=== PATIENT | male | born 1935 | race African-American/Black ===

== ENCOUNTER 2020-05-04 12:15 | Inpatient (IN) | payer OTHER ==
[2020-05-04] MEDS ORDERED: LACTATED RINGERS SOLUTION 1000 ML INFUS.BAG IV ONE (12:49)
[2020-05-04] MEDS ORDERED: GLUCAGON 1 MG KIT ONE (12:56)
[2020-05-04] MEDS ORDERED: ATROPINE SULFATE 1 MG/10 ML DISP.SYRIN ONE (12:56)
[2020-05-04 13:20] VITALS: BMI 23.2
[2020-05-04] MEDS ORDERED: DEXTROSE 50%-WATER - 25 GM/50 ML VIAL IVPUSH ONE (13:22)
[2020-05-04] MEDS ORDERED: DEXTROSE 50%-WATER 25 GM/50 ML DISP.SYRIN ONE (13:25)
[2020-05-04 13:45] LABS: BASO % 0.5 % (0-2.0); EOS % 1.6 % (0-4.5); HEMATOCRIT 38.7 % (35.4-49); HEMOGLOBIN 13.1 GM/dL (11.7-16.9); MCH 33.7 pg (25.7-33.7); MCHC 33.8 g/dl (32.0-35.9); MEAN CELL VOLUME 99.8 fl (80-96); MEAN PLT VOLUME 8.9 fl (7.5-11.1); MONO % 6.4 % (3.8-10.2); NEUT % 78.5 % (42.8-82.8); PLATELET COUNT 311 K/MM3 (134-434); RBC 3.88 M/mm3 (4.00-5.60); RDW 13.6 % (11.9-15.9)
[2020-05-04 13:51] LABS: INR 1.11 (0.83-1.09); PROTHROMBIN TIME (PATIENT) 13.4 SEC (9.7-13.0)
[2020-05-04 13:53] LABS: ACTIVATED PTT 28.3 SECONDS (25.2-36.5)
[2020-05-04 14:18] LABS: POTASSIUM 3.7 mmol/L (3.5-5.1)
[2020-05-04 14:20] LABS: ALBUMIN 3.4 g/dl (3.4-5.0); CALCIUM 8.4 mg/dL (8.5-10.1); MAGNESIUM 2.6 mg/dL (1.8-2.4)
[2020-05-04 14:21] LABS: BLOOD UREA NITROGEN 27.2 mg/dL (7-18)
[2020-05-04 14:24] LABS: CREATININE 1.4 mg/dL (0.55-1.3)
[2020-05-04 14:25] LABS: BILIRUBIN,TOTAL 0.3 mg/dL (0.2-1); TOT PROT 6.8 g/dl (6.4-8.2)
[2020-05-04] MEDS ORDERED: SODIUM CHLORIDE 0.45% 1,000 ML IV SCH (15:00)
[2020-05-04] MEDS: INSULIN SLIDING SCALE (NOVOLOG) 1 VIAL SQ SCH ×2 (16:37→22:56)
[2020-05-04] MEDS ORDERED: amLODIPine BESYLATE 5 MG TABLET (FP) PO ONE (18:18)
[2020-05-04] MEDS ORDERED: amLODIPine BESYLATE 5 MG TABLET (FP) ONE (18:21)
[2020-05-04 18:53] LABS: PH,URINE 7.5 (5.0-8.0); URINE APPEARANCE CLEAR; URINE BILIRUBIN NEGATIVE (NEGATIVE); URINE COLOR YELLOW; URINE GLUCOSE (UA) NEGATIVE (NEGATIVE); URINE KETONE NEGATIVE (NEGATIVE); URINE LEUK ESTERASE NEGATIVE (NEGATIVE); URINE NITRITE NEGATIVE (NEGATIVE); URINE PROTEIN NEGATIVE (NEGATIVE); URINE UROBILINOGEN 0.2 mg/dL (0.2-1.0)
[2020-05-04] MEDS: PHENobarbital 30 MG TABLET PO SCH (22:56)
[2020-05-05] MEDS ORDERED: SODIUM CHLORIDE 0.45% 1,000 ML IV SCH (03:00)
[2020-05-05] MEDS: INSULIN SLIDING SCALE (NOVOLOG) 1 VIAL SQ SCH ×3 (06:45→16:56)
[2020-05-05] MEDS ORDERED: PT OWN MED DRAWER 7, Y5N ONE (06:47)
[2020-05-05] MEDS: levETIRAcetam 500 MG/5 ML ORAL SOLUTION (UNIT-DOSE CUPS) PO SCH ×2 (06:48→12:53)
[2020-05-05] MEDS: amLODIPine BESYLATE 5 MG TABLET (FP) PO SCH ×2 (07:39→11:27)
[2020-05-05 08:24] LABS: BASO % 0.6 % (0-2.0); EOS % 3.6 % (0-4.5); HEMATOCRIT 37.5 % (35.4-49); HEMOGLOBIN 12.6 GM/dL (11.7-16.9); MCH 33.3 pg (25.7-33.7); MCHC 33.5 g/dl (32.0-35.9); MEAN CELL VOLUME 99.3 fl (80-96); MEAN PLT VOLUME 9.1 fl (7.5-11.1); MONO % 6.4 % (3.8-10.2); NEUT % 61.4 % (42.8-82.8); PLATELET COUNT 272 K/MM3 (134-434); RBC 3.78 M/mm3 (4.00-5.60); RDW 13.3 % (11.9-15.9); WHITE BLOOD COUNT 6.6 K/mm3 (4.0-10.0)
[2020-05-05 08:53] LABS: POTASSIUM 3.5 mmol/L (3.5-5.1)
[2020-05-05 09:05] LABS: CALCIUM 8.5 mg/dL (8.5-10.1)
[2020-05-05 09:06] LABS: ALBUMIN 3.3 g/dl (3.4-5.0); BILIRUBIN,TOTAL 0.6 mg/dL (0.2-1); BLOOD UREA NITROGEN 22.2 mg/dL (7-18); MAGNESIUM 2.3 mg/dL (1.8-2.4); TOT PROT 6.5 g/dl (6.4-8.2)
[2020-05-05 09:08] LABS: CREATININE 1.1 mg/dL (0.55-1.3); PHOSPHOROUS 2.6 mg/dL (2.5-4.9)
[2020-05-05] MEDS: ENOXAPARIN NA (PORCINE) 40 MG/0.4 ML DISP.SYRIN SQ SCH (11:26)
[2020-05-05] MEDS: PHENobarbital 30 MG TABLET PO SCH ×2 (11:26→21:44)
[2020-05-05] MEDS: ISOSORBIDE DINITRATE 5 MG TABLET PO SCH ×2 (11:27→17:55)
[2020-05-05] MEDS: hydrALAZINE HCL 50 MG TABLET (FP) PO SCH ×3 (11:28→17:54)
[2020-05-05] MEDS: ALBUTEROL SO4 HFA INHALER IH SCH (21:44)
[2020-05-05] MEDS: POTASSIUM CHLORIDE TABS 20 MEQ TABLET.ER (FP) PO SCH (21:44)
[2020-05-05] MEDS: LATANOPROST 0.005% OPHTH SOLN 2.5ML BOTTLE OU SCH (21:45)
[2020-05-06] MEDS ORDERED: amLODIPine BESYLATE 5 MG TABLET (FP) PO ONE (02:02)
[2020-05-06] MEDS: ALBUTEROL SO4 HFA INHALER IH SCH ×3 (06:46→21:50)
[2020-05-06 08:09] LABS: HEMATOCRIT 37.6 % (35.4-49); HEMOGLOBIN 12.6 GM/dL (11.7-16.9); MCH 33.1 pg (25.7-33.7); MCHC 33.7 g/dl (32.0-35.9); MEAN CELL VOLUME 98.5 fl (80-96); MEAN PLT VOLUME 9.8 fl (7.5-11.1); PLATELET COUNT 268 K/MM3 (134-434); RBC 3.81 M/mm3 (4.00-5.60); RDW 13.4 % (11.9-15.9); WHITE BLOOD COUNT 6.1 K/mm3 (4.0-10.0)
[2020-05-06 08:14] LABS: POTASSIUM 3.6 mmol/L (3.5-5.1)
[2020-05-06 08:15] LABS: CALCIUM 8.4 mg/dL (8.5-10.1)
[2020-05-06 08:16] LABS: BLOOD UREA NITROGEN 20.2 mg/dL (7-18)
[2020-05-06] MEDS ORDERED: hydrALAZINE HCL 25 MG TABLET (FP) PO SCH (08:18)
[2020-05-06 08:19] LABS: CREATININE 1.1 mg/dL (0.55-1.3)
[2020-05-06] MEDS: CHOLECALCIFEROL (VIT D3) 1,000 UNIT (25 MCG) TABLET PO SCH (09:43)
[2020-05-06] MEDS: ENOXAPARIN NA (PORCINE) 40 MG/0.4 ML DISP.SYRIN SQ SCH (09:43)
[2020-05-06] MEDS: POTASSIUM CHLORIDE TABS 20 MEQ TABLET.ER (FP) PO SCH ×2 (09:44→21:43)
[2020-05-06] MEDS: CYANOCOBALAMIN 1,000 MCG TABLET (FP) PO SCH (09:45)
[2020-05-06] MEDS: ISOSORBIDE DINITRATE 5 MG TABLET PO SCH ×2 (09:45→18:14)
[2020-05-06] MEDS: NIFEdipine E.R. 90 MG TABLET PO SCH (09:46)
[2020-05-06] MEDS: TAMSULOSIN HCL 0.4 MG CAP PO SCH (09:46)
[2020-05-06] MEDS: PHENobarbital 30 MG TABLET PO SCH ×2 (09:46→21:49)
[2020-05-06] MEDS: levETIRAcetam 500 MG/5 ML ORAL SOLUTION (UNIT-DOSE CUPS) PO SCH (09:47)
[2020-05-06] MEDS ORDERED: NIFEdipine E.R. 90 MG TABLET PO SCH (10:00)
[2020-05-06] MEDS: LOSARTAN POTASSIUM 25 MG TABLET PO SCH ×2 (13:19→21:44)
[2020-05-06] MEDS: hydrALAZINE HCL 50 MG TABLET (FP) PO SCH ×2 (18:14→22:16)
[2020-05-06] MEDS ORDERED: hydrALAZINE HCL 50 MG TABLET (FP) PO SCH (19:00)
[2020-05-06] MEDS: LATANOPROST 0.005% OPHTH SOLN 2.5ML BOTTLE OU SCH (21:43)
[2020-05-06] MEDS: ATORVASTATIN CA 10 MG TABLET (FP) PO SCH (21:49)
[2020-05-07] MEDS: NIFEdipine E.R. 90 MG TABLET PO SCH ×2 (06:03→09:55)
[2020-05-07] MEDS: ALBUTEROL SO4 HFA INHALER IH SCH ×3 (06:03→21:37)
[2020-05-07 07:31] LABS: BASO % 0.6 % (0-2.0); EOS % 2.8 % (0-4.5); HEMATOCRIT 36.8 % (35.4-49); HEMOGLOBIN 12.5 GM/dL (11.7-16.9); LYMPH % 29.9 % (8-40); MCH 33.5 pg (25.7-33.7); MCHC 34.1 g/dl (32.0-35.9); MEAN CELL VOLUME 98.4 fl (80-96); MEAN PLT VOLUME 9.1 fl (7.5-11.1); MONO % 8.7 % (3.8-10.2); PLATELET COUNT 278 K/MM3 (134-434); RBC 3.74 M/mm3 (4.00-5.60); RDW 13.4 % (11.9-15.9); WHITE BLOOD COUNT 6.1 K/mm3 (4.0-10.0)
[2020-05-07 07:45] LABS: POTASSIUM 3.5 mmol/L (3.5-5.1)
[2020-05-07 07:47] LABS: CALCIUM 8.8 mg/dL (8.5-10.1)
[2020-05-07 07:48] LABS: ALBUMIN 3.2 g/dl (3.4-5.0); BLOOD UREA NITROGEN 18.5 mg/dL (7-18)
[2020-05-07 07:51] LABS: CREATININE 1.1 mg/dL (0.55-1.3)
[2020-05-07 07:52] LABS: BILIRUBIN,TOTAL 0.7 mg/dL (0.2-1); TOT PROT 6.5 g/dl (6.4-8.2)
[2020-05-07] MEDS ORDERED: CHLORTHALIDONE 25 MG TABLET PO SCH ×3 (09:18→10:00)
[2020-05-07] MEDS: ENOXAPARIN NA (PORCINE) 40 MG/0.4 ML DISP.SYRIN SQ SCH (09:53)
[2020-05-07] MEDS: CHOLECALCIFEROL (VIT D3) 1,000 UNIT (25 MCG) TABLET PO SCH (09:53)
[2020-05-07] MEDS: TAMSULOSIN HCL 0.4 MG CAP PO SCH (09:54)
[2020-05-07] MEDS: ISOSORBIDE DINITRATE 5 MG TABLET PO SCH ×2 (09:54→18:15)
[2020-05-07] MEDS: FUROSEMIDE 20 MG TABLET (FP) PO SCH ×2 (09:54→21:35)
[2020-05-07] MEDS: POTASSIUM CHLORIDE TABS 20 MEQ TABLET.ER (FP) PO SCH (09:54)
[2020-05-07] MEDS: CYANOCOBALAMIN 1,000 MCG TABLET (FP) PO SCH (09:54)
[2020-05-07] MEDS: PHENobarbital 30 MG TABLET PO SCH ×2 (09:55→21:36)
[2020-05-07] MEDS: LOSARTAN POTASSIUM 25 MG TABLET PO SCH ×2 (09:55→21:36)
[2020-05-07] MEDS ORDERED: METOPROLOL TARTRATE 50 MG TABLET (FP) PO SCH (10:00)
[2020-05-07] MEDS ORDERED: levETIRAcetam 500 MG TABLET (FP) PO SCH (10:00)
[2020-05-07] MEDS: levETIRAcetam 500 MG/5 ML ORAL SOLUTION (UNIT-DOSE CUPS) PO SCH (10:28)
[2020-05-07] MEDS: hydrALAZINE HCL 25 MG TABLET (FP) PO SCH ×4 (12:07→21:35)
[2020-05-07] MEDS ORDERED: NIFEdipine E.R. 90 MG TABLET PO SCH (16:41)
[2020-05-07] MEDS ORDERED: NIFEdipine E.R. 30 MG TABLET PO ONE (16:41)
[2020-05-07] MEDS: SPIRONOLACTONE 25 MG TABLET PO SCH (16:58)
[2020-05-07] MEDS: ATORVASTATIN CA 10 MG TABLET (FP) PO SCH (21:36)
[2020-05-07] MEDS: LATANOPROST 0.005% OPHTH SOLN 2.5ML BOTTLE OU SCH (21:37)
[2020-05-08] MEDS ORDERED: LABETALOL HCL 5 MG/1 ML (100MG/20 ML VIAL) IVPUSH ONE ×2 (01:43→01:59)
[2020-05-08] MEDS: ALBUTEROL SO4 HFA INHALER IH SCH ×3 (06:26→22:03)
[2020-05-08 07:58] LABS: BASO % 0.5 % (0-2.0); EOS % 2.4 % (0-4.5); HEMATOCRIT 38.6 % (35.4-49); LYMPH % 29.8 % (8-40); MCH 33.3 pg (25.7-33.7); MCHC 33.8 g/dl (32.0-35.9); MEAN CELL VOLUME 98.5 fl (80-96); MEAN PLT VOLUME 9.1 fl (7.5-11.1); MONO % 9.4 % (3.8-10.2); NEUT % 57.9 % (42.8-82.8); PLATELET COUNT 280 K/MM3 (134-434); RBC 3.92 M/mm3 (4.00-5.60); RDW 13.5 % (11.9-15.9); WHITE BLOOD COUNT 5.5 K/mm3 (4.0-10.0)
[2020-05-08] MEDS ORDERED: PT OWN MED DRAWER 7, Y5N ONE (08:04)
[2020-05-08] MEDS: TAMSULOSIN HCL 0.4 MG CAP PO SCH (08:24)
[2020-05-08] MEDS: INSULIN (LEVEMIR) 100 UNITS/ML UNITS SQ SCH (09:52)
[2020-05-08] MEDS: NIFEdipine E.R 60 MG TABLET PO SCH (09:52)
[2020-05-08] MEDS: ENOXAPARIN NA (PORCINE) 40 MG/0.4 ML DISP.SYRIN SQ SCH (09:52)
[2020-05-08] MEDS: PHENobarbital 30 MG TABLET PO SCH ×2 (09:53→22:02)
[2020-05-08] MEDS: FUROSEMIDE 20 MG TABLET (FP) PO SCH ×2 (09:53→22:02)
[2020-05-08] MEDS: ISOSORBIDE DINITRATE 5 MG TABLET PO SCH ×2 (09:53→17:30)
[2020-05-08] MEDS: POTASSIUM CHLORIDE TABS 10 MEQ TABLET.ER (FP) PO SCH (09:53)
[2020-05-08] MEDS: CYANOCOBALAMIN 1,000 MCG TABLET (FP) PO SCH (09:53)
[2020-05-08] MEDS: SPIRONOLACTONE 25 MG TABLET PO SCH (09:53)
[2020-05-08] MEDS: hydrALAZINE HCL 25 MG TABLET (FP) PO SCH ×3 (09:53→22:01)
[2020-05-08] MEDS: LOSARTAN POTASSIUM 25 MG TABLET PO SCH ×2 (09:53→22:01)
[2020-05-08] MEDS: CHOLECALCIFEROL (VIT D3) 1,000 UNIT (25 MCG) TABLET PO SCH (09:54)
[2020-05-08] MEDS: levETIRAcetam 500 MG TABLET (FP) PO SCH (09:54)
[2020-05-08] MEDS ORDERED: POTASSIUM CHLORIDE TABS 20 MEQ TABLET.ER (FP) PO SCH (10:00)
[2020-05-08] MEDS ORDERED: BUDESONIDE/FORMETEROL FUMARATE 80/4.5 mcg INHALER IH SCH (10:30)
[2020-05-08 19:48] LABS: PH,URINE 6.5 (5.0-8.0); URINE APPEARANCE CLEAR; URINE BILIRUBIN NEGATIVE (NEGATIVE); URINE COLOR YELLOW; URINE GLUCOSE (UA) NEGATIVE (NEGATIVE); URINE KETONE NEGATIVE (NEGATIVE); URINE LEUK ESTERASE NEGATIVE (NEGATIVE); URINE NITRITE NEGATIVE (NEGATIVE); URINE PROTEIN NEGATIVE (NEGATIVE); URINE UROBILINOGEN 0.2 mg/dL (0.2-1.0)
[2020-05-08] MEDS: ATORVASTATIN CA 10 MG TABLET (FP) PO SCH (22:02)
[2020-05-08] MEDS: LATANOPROST 0.005% OPHTH SOLN 2.5ML BOTTLE OU SCH (22:03)
[2020-05-09] MEDS: ALBUTEROL SO4 HFA INHALER IH SCH ×2 (06:33→13:52)
[2020-05-09] MEDS: INSULIN (LEVEMIR) 100 UNITS/ML UNITS SQ SCH (06:34)
[2020-05-09 08:11] LABS: BASO % 3.1 % (0-2.0); EOS % 2.7 % (0-4.5); HEMATOCRIT 42.8 % (35.4-49); HEMOGLOBIN 14.4 GM/dL (11.7-16.9); LYMPH % 31.4 % (8-40); MCH 33.8 pg (25.7-33.7); MCHC 33.6 g/dl (32.0-35.9); MEAN CELL VOLUME 100.5 fl (80-96); MEAN PLT VOLUME 9.7 fl (7.5-11.1); MONO % 8.5 % (3.8-10.2); NEUT % 54.3 % (42.8-82.8); PLATELET COUNT 225 K/MM3 (134-434); RBC 4.26 M/mm3 (4.00-5.60); RDW 13.5 % (11.9-15.9); WHITE BLOOD COUNT 6.3 K/mm3 (4.0-10.0)
[2020-05-09 08:14] LABS: POTASSIUM 3.5 mmol/L (3.5-5.1)
[2020-05-09 08:17] LABS: CALCIUM 9.2 mg/dL (8.5-10.1)
[2020-05-09 08:22] LABS: CREATININE 1.2 mg/dL (0.55-1.3)
[2020-05-09] MEDS: TAMSULOSIN HCL 0.4 MG CAP PO SCH (08:55)
[2020-05-09] MEDS: ENOXAPARIN NA (PORCINE) 40 MG/0.4 ML DISP.SYRIN SQ SCH (09:49)
[2020-05-09] MEDS: ISOSORBIDE DINITRATE 5 MG TABLET PO SCH (09:49)
[2020-05-09] MEDS: levETIRAcetam 500 MG TABLET (FP) PO SCH (09:49)
[2020-05-09] MEDS: POTASSIUM CHLORIDE TABS 10 MEQ TABLET.ER (FP) PO SCH (09:49)
[2020-05-09] MEDS: CYANOCOBALAMIN 1,000 MCG TABLET (FP) PO SCH (09:49)
[2020-05-09] MEDS: SPIRONOLACTONE 25 MG TABLET PO SCH (09:49)
[2020-05-09] MEDS: FUROSEMIDE 20 MG TABLET (FP) PO SCH (09:50)
[2020-05-09] MEDS: CHOLECALCIFEROL (VIT D3) 1,000 UNIT (25 MCG) TABLET PO SCH (09:50)
[2020-05-09] MEDS: hydrALAZINE HCL 25 MG TABLET (FP) PO SCH (09:51)
[2020-05-09] MEDS: PHENobarbital 30 MG TABLET PO SCH (09:52)
[2020-05-09] MEDS: LOSARTAN POTASSIUM 25 MG TABLET PO SCH (09:52)
[2020-05-09] MEDS: NIFEdipine E.R 60 MG TABLET PO SCH (09:52)
[2020-05-09 10:34] VITALS: BP 157/80; PULSE 69; TEMP 98.5
[2020-05-09] MEDS ORDERED: hydrALAZINE HCL 25 MG TABLET (FP) PO SCH (14:00)
== END 2020-05-09 14:03 | DRG 78 ==
LOC: JER 12:15 → JERBED 14:52 → J4W 20:31
PROVIDERS: ADMIT Internal Medicine; ATTEND Internal Medicine
DX: I67.4 Hypertensive encephalopathy (principal); I16.1 Hypertensive emergency; I69.354 Hemiplegia and hemiparesis following cerebral infarction affecting left non-dominant side; N17.9 Acute kidney failure, unspecified; E87.0 Hyperosmolality and hypernatremia; R41.82 Altered mental status, unspecified; I12.9 Hypertensive chronic kidney disease with stage 1 through stage 4 chronic kidney disease, or unspecified chronic kidney disease; G40.909 Epilepsy, unspecified, not intractable, without status epilepticus; N18.9 Chronic kidney disease, unspecified; J44.9 Chronic obstructive pulmonary disease, unspecified; N40.0 Benign prostatic hyperplasia without lower urinary tract symptoms; R55 Syncope and collapse; E87.6 Hypokalemia; H40.9 Unspecified glaucoma; R00.1 Bradycardia, unspecified; E11.9 Type 2 diabetes mellitus without complications
CPT/HCPCS: 36415; 70450-TC; 71045-TC-FY; 80048; 80053; 80061; 80177; 80184; 81003; 82550; 82553; 82962; 83036; 83721; 83735; 84100; 84443; 84484; 85025; 85027; 85379; 85610; 85730; 93005; 93010; 93306-TC; 93880-TC; 97116-GP; 97161-GP; 99285-25; C9803; U0003

== ENCOUNTER 2021-03-11 13:42 | Inpatient (IN) | payer OTHER ==
[2021-03-11 14:41] VITALS: BMI 22.8
[2021-03-11 16:24] LABS: BASO % 0.5 % (0-2.0); EOS % 2.6 % (0-4.5); HEMATOCRIT 40.4 % (35.4-49); HEMOGLOBIN 13.7 GM/dL (11.7-16.9); LYMPH % 15.8 % (8-40); MCH 32.8 pg (25.7-33.7); MCHC 33.8 g/dl (32.0-35.9); MEAN CELL VOLUME 96.9 fl (80-96); MEAN PLT VOLUME 8.4 fl (7.5-11.1); MONO % 7.7 % (3.8-10.2); NEUT % 73.4 % (42.8-82.8); PLATELET COUNT 333 10^3/uL (134-434); RBC 4.17 M/mm3 (4.00-5.60); RDW 13.3 % (11.9-15.9); WHITE BLOOD COUNT 6.5 K/mm3 (4.0-10.0)
[2021-03-11 16:35] LABS: VENOUS O2 SATURATION 49.5 % (70-80); VENOUS PCO2 67.1 mmHg (38-52); VENOUS PH 7.317 (7.310-7.410)
[2021-03-11 16:40] LABS: INR 1.19 (0.83-1.09); PROTHROMBIN TIME (PATIENT) 13.7 SEC (9.7-13.0)
[2021-03-11 16:46] LABS: MAGNESIUM 2.4 mg/dL (1.8-2.4)
[2021-03-11 17:38] LABS: CALCIUM 9.6 mg/dL (8.5-10.1)
[2021-03-11 17:39] LABS: ALBUMIN 4.1 g/dl (3.4-5.0); BLOOD UREA NITROGEN 29.7 mg/dL (7-18)
[2021-03-11 17:42] LABS: CREATININE 1.6 mg/dL (0.55-1.3)
[2021-03-11 17:45] LABS: BILIRUBIN,TOTAL 0.5 mg/dL (0.2-1); TOT PROT 7.8 g/dl (6.4-8.2)
[2021-03-11] MEDS ORDERED: SODIUM CHLORIDE 0.9% 500 ML INFUS.BAG IV ONE (18:11)
[2021-03-11] MEDS ORDERED: POTASSIUM CHLORIDE TABS 20 MEQ TABLET.ER (FP) PO ONE (18:11)
[2021-03-11] MEDS ORDERED: LOSARTAN POTASSIUM 50 MG TABLET PO SCH (22:00)
[2021-03-11] MEDS ORDERED: FUROSEMIDE 40 MG TABLET (FP) PO SCH (22:00)
[2021-03-11] MEDS ORDERED: LOSARTAN POTASSIUM 50 MG TABLET ONE (22:11)
[2021-03-11] MEDS ORDERED: hydrALAZINE HCL 25 MG TABLET (FP) ONE (22:11)
[2021-03-11] MEDS: hydrALAZINE HCL 25 MG TABLET (FP) PO SCH (22:17)
[2021-03-11 22:53] LABS: URINE APPEARANCE CLEAR; URINE BILIRUBIN NEGATIVE (NEGATIVE); URINE COLOR YELLOW; URINE GLUCOSE (UA) NEGATIVE (NEGATIVE); URINE KETONE NEGATIVE (NEGATIVE); URINE LEUK ESTERASE NEGATIVE (NEGATIVE); URINE NITRITE NEGATIVE (NEGATIVE); URINE PROTEIN TRACE (NEGATIVE); URINE UROBILINOGEN 0.2 mg/dL (0.2-1.0)
[2021-03-11] MEDS: HEPARIN NA (PORCINE) 5,000 UNITS/ML 1ML VIAL SQ SCH (23:36)
[2021-03-11] MEDS ORDERED: HEPARIN NA (PORCINE) 5,000 UNITS/ML 1ML VIAL ONE (23:39)
[2021-03-12] MEDS ORDERED: FUROSEMIDE 40 MG TABLET (FP) ONE ×2 (06:08→16:37)
[2021-03-12] MEDS ORDERED: HEPARIN NA (PORCINE) 5,000 UNITS/ML 1ML VIAL ONE ×3 (06:08→22:08)
[2021-03-12] MEDS ORDERED: hydrALAZINE HCL 25 MG TABLET (FP) ONE ×3 (06:08→22:08)
[2021-03-12] MEDS: hydrALAZINE HCL 25 MG TABLET (FP) PO SCH ×3 (06:30→22:15)
[2021-03-12] MEDS: HEPARIN NA (PORCINE) 5,000 UNITS/ML 1ML VIAL SQ SCH ×3 (06:30→22:15)
[2021-03-12] MEDS: FUROSEMIDE 40 MG, FUROSEMIDE 20 MG PO SCH ×2 (06:30→17:21)
[2021-03-12 08:39] LABS: BASO % 0.7 % (0-2.0); EOS % 2.4 % (0-4.5); HEMATOCRIT 40.3 % (35.4-49); HEMOGLOBIN 13.5 GM/dL (11.7-16.9); MCH 32.3 pg (25.7-33.7); MCHC 33.4 g/dl (32.0-35.9); MEAN CELL VOLUME 96.7 fl (80-96); MEAN PLT VOLUME 8.6 fl (7.5-11.1); MONO % 7.8 % (3.8-10.2); NEUT % 62.1 % (42.8-82.8); PLATELET COUNT 360 10^3/uL (134-434); RBC 4.17 M/mm3 (4.00-5.60); RDW 13.3 % (11.9-15.9); WHITE BLOOD COUNT 6.2 K/mm3 (4.0-10.0)
[2021-03-12 08:50] LABS: CALCIUM 9.6 mg/dL (8.5-10.1)
[2021-03-12 08:51] LABS: ALBUMIN 3.8 g/dl (3.4-5.0); BLOOD UREA NITROGEN 23.5 mg/dL (7-18); MAGNESIUM 2.1 mg/dL (1.8-2.4)
[2021-03-12 08:54] LABS: CREATININE 1.2 mg/dL (0.55-1.3); PHOSPHOROUS 2.8 mg/dL (2.5-4.9)
[2021-03-12 08:55] LABS: BILIRUBIN,TOTAL 0.7 mg/dL (0.2-1); TOT PROT 7.4 g/dl (6.4-8.2)
[2021-03-12] MEDS ORDERED: amLODIPine BESYLATE 5 MG TABLET (FP) PO ONE (19:33)
[2021-03-12] MEDS ORDERED: amLODIPine BESYLATE 5 MG TABLET (FP) ONE (19:35)
[2021-03-13] MEDS ORDERED: hydrALAZINE HCL 25 MG TABLET (FP) ONE ×2 (05:55→14:26)
[2021-03-13] MEDS ORDERED: FUROSEMIDE 40 MG TABLET (FP) ONE (05:58)
[2021-03-13] MEDS: FUROSEMIDE 40 MG TABLET (FP) PO SCH (06:11)
[2021-03-13] MEDS: hydrALAZINE HCL 25 MG TABLET (FP) PO SCH ×3 (06:11→23:43)
[2021-03-13 07:48] LABS: BASO % 0.5 % (0-2.0); EOS % 2.2 % (0-4.5); HEMATOCRIT 44.6 % (35.4-49); HEMOGLOBIN 14.8 GM/dL (11.7-16.9); MCH 32.3 pg (25.7-33.7); MCHC 33.1 g/dl (32.0-35.9); MEAN CELL VOLUME 97.6 fl (80-96); MEAN PLT VOLUME 8.8 fl (7.5-11.1); MONO % 7.4 % (3.8-10.2); NEUT % 60.9 % (42.8-82.8); PLATELET COUNT 371 10^3/uL (134-434); RBC 4.57 M/mm3 (4.00-5.60); RDW 13.4 % (11.9-15.9); WHITE BLOOD COUNT 6.4 K/mm3 (4.0-10.0)
[2021-03-13 08:03] LABS: CALCIUM 9.8 mg/dL (8.5-10.1)
[2021-03-13 08:04] LABS: BLOOD UREA NITROGEN 25.9 mg/dL (7-18)
[2021-03-13 08:07] LABS: CREATININE 1.3 mg/dL (0.55-1.3)
[2021-03-13] MEDS ORDERED: POTASSIUM CHLORIDE ORAL LIQUID 20 MEQ/15 ML PO ONE (09:15)
[2021-03-13] MEDS ORDERED: HEPARIN NA (PORCINE) 5,000 UNITS/ML 1ML VIAL ONE (09:59)
[2021-03-13] MEDS ORDERED: TAMSULOSIN HCL 0.4 MG CAP ONE (09:59)
[2021-03-13] MEDS ORDERED: ISOSORBIDE DINITRATE 5 MG TABLET PO SCH (10:00)
[2021-03-13] MEDS ORDERED: TAMSULOSIN HCL 0.4 MG CAP PO SCH (10:00)
[2021-03-13] MEDS ORDERED: NIFEdipine E.R 60 MG TABLET PO SCH (10:00)
[2021-03-13] MEDS: HEPARIN NA (PORCINE) 5,000 UNITS/ML 1ML VIAL SQ SCH ×2 (11:00→23:43)
[2021-03-13] MEDS ORDERED: POTASSIUM CHLORIDE ORAL LIQUID 20 MEQ/15 ML ONE (11:07)
[2021-03-13] MEDS ORDERED: ALBUTEROL SO4 HFA INHALER IH SCH (14:00)
[2021-03-13] MEDS ORDERED: PHENobarbital 30 MG TABLET ONE (14:26)
[2021-03-13] MEDS: ISOSORBIDE DINITRATE 10 MG TABLET PO SCH (14:37)
[2021-03-13] MEDS: PHENobarbital 30 MG TABLET PO SCH ×2 (14:37→23:42)
[2021-03-13] MEDS ORDERED: ATORVASTATIN CA 10 MG TABLET (FP) PO SCH (22:00)
[2021-03-13] MEDS ORDERED: levETIRAcetam 500 MG TABLET (FP) PO ONE (22:08)
[2021-03-13] MEDS: ATORVASTATIN CA 40 MG TABLET (FP) PO SCH (23:42)
[2021-03-14] MEDS: hydrALAZINE HCL 25 MG TABLET (FP) PO SCH ×3 (06:42→22:01)
[2021-03-14 07:29] LABS: BASO % 0.5 % (0-2.0); EOS % 2.8 % (0-4.5); HEMATOCRIT 38.7 % (35.4-49); LYMPH % 27.3 % (8-40); MCH 32.7 pg (25.7-33.7); MCHC 33.6 g/dl (32.0-35.9); MEAN CELL VOLUME 97.5 fl (80-96); MEAN PLT VOLUME 8.8 fl (7.5-11.1); MONO % 10.2 % (3.8-10.2); NEUT % 59.2 % (42.8-82.8); PLATELET COUNT 343 10^3/uL (134-434); RBC 3.97 M/mm3 (4.00-5.60); RDW 13.7 % (11.9-15.9); WHITE BLOOD COUNT 6.5 K/mm3 (4.0-10.0)
[2021-03-14 08:00] LABS: ALBUMIN 3.4 g/dl (3.4-5.0); BLOOD UREA NITROGEN 38.5 mg/dL (7-18)
[2021-03-14 08:02] LABS: CALCIUM 9.1 mg/dL (8.5-10.1)
[2021-03-14 08:03] LABS: CREATININE 1.5 mg/dL (0.55-1.3); TOT PROT 6.6 g/dl (6.4-8.2)
[2021-03-14 08:04] LABS: BILIRUBIN,TOTAL 0.9 mg/dL (0.2-1)
[2021-03-14] MEDS ORDERED: PT OWN MED DRAWER 7, Y5N ONE (09:10)
[2021-03-14] MEDS: PHENobarbital 30 MG TABLET PO SCH ×2 (09:17→22:02)
[2021-03-14] MEDS: NIFEdipine E.R 60 MG TABLET PO SCH (09:17)
[2021-03-14] MEDS: HYDROCHLOROTHIAZIDE 25 MG TABLET (FP) PO SCH (09:18)
[2021-03-14] MEDS: TAMSULOSIN HCL 0.4 MG CAP PO SCH (09:18)
[2021-03-14] MEDS: ISOSORBIDE DINITRATE 10 MG TABLET PO SCH ×3 (09:19→18:42)
[2021-03-14] MEDS: HEPARIN NA (PORCINE) 5,000 UNITS/ML 1ML VIAL SQ SCH ×2 (09:19→22:06)
[2021-03-14] MEDS ORDERED: levETIRAcetam 500 MG TABLET (FP) PO SCH ×2 (10:00→22:00)
[2021-03-14] MEDS ORDERED: POTASSIUM CHLORIDE ORAL LIQUID 20 MEQ/15 ML PO ONE (11:45)
[2021-03-14] MEDS ORDERED: SODIUM CHLORIDE 1,000 ML IV SCH (11:45)
[2021-03-14] MEDS: KCL 10 MEQ IVPB 10 MEQ/100 ML INFUS.BAG IVPB SCH ×3 (12:36→16:46)
[2021-03-14] MEDS: ATORVASTATIN CA 40 MG TABLET (FP) PO SCH (22:01)
[2021-03-15] MEDS: hydrALAZINE HCL 25 MG TABLET (FP) PO SCH ×3 (06:13→21:44)
[2021-03-15 08:19] LABS: BASO % 0.3 % (0-2.0); EOS % 0.4 % (0-4.5); HEMATOCRIT 39.7 % (35.4-49); HEMOGLOBIN 12.8 GM/dL (11.7-16.9); LYMPH % 10.1 % (8-40); MCH 32.1 pg (25.7-33.7); MCHC 32.3 g/dl (32.0-35.9); MEAN CELL VOLUME 99.4 fl (80-96); MEAN PLT VOLUME 9.2 fl (7.5-11.1); MONO % 8.7 % (3.8-10.2); NEUT % 80.5 % (42.8-82.8); PLATELET COUNT 303 10^3/uL (134-434); RDW 13.4 % (11.9-15.9); WHITE BLOOD COUNT 10.3 K/mm3 (4.0-10.0)
[2021-03-15 08:52] LABS: CALCIUM 8.9 mg/dL (8.5-10.1)
[2021-03-15 08:53] LABS: ALBUMIN 3.1 g/dl (3.4-5.0); BLOOD UREA NITROGEN 54.6 mg/dL (7-18)
[2021-03-15 08:56] LABS: CREATININE 2.3 mg/dL (0.55-1.3); TOT PROT 6.4 g/dl (6.4-8.2)
[2021-03-15] MEDS: ISOSORBIDE DINITRATE 10 MG TABLET PO SCH ×4 (08:59→17:07)
[2021-03-15] MEDS ORDERED: SODIUM CHLORIDE 1,000 ML IV SCH (09:53)
[2021-03-15] MEDS: HEPARIN NA (PORCINE) 5,000 UNITS/ML 1ML VIAL SQ SCH ×2 (10:52→21:44)
[2021-03-15] MEDS: levETIRAcetam 500 MG/5 ML INJECTION VIAL IVPB SCH ×2 (10:52→21:43)
[2021-03-15] MEDS: FUROSEMIDE 40 MG TABLET (FP) PO SCH (10:57)
[2021-03-15] MEDS: KCL 10 MEQ IVPB 10 MEQ/100 ML INFUS.BAG IVPB SCH (10:57)
[2021-03-15] MEDS: PHENobarbital 30 MG TABLET PO SCH (10:59)
[2021-03-15] MEDS: TAMSULOSIN HCL 0.4 MG CAP PO SCH (10:59)
[2021-03-15] MEDS: HYDROCHLOROTHIAZIDE 25 MG TABLET (FP) PO SCH (10:59)
[2021-03-15] MEDS: NIFEdipine E.R 60 MG TABLET PO SCH (11:00)
[2021-03-15] MEDS ORDERED: ACETAMINOPHEN INJECTION 100 ML IVPB ONE (12:28)
[2021-03-15] MEDS ORDERED: ACETAMINOPHEN 1000 MG/100 ML BAG IVPB ONE (12:38)
[2021-03-15 14:38] LABS: ARTERIAL BLD GAS O2 SATURATION 97.7 % (95-98); ARTERIAL BLOOD GAS BASE EXCESS 1.7 mmol/L (-2-2); ARTERIAL BLOOD GAS PO2 103.8 mmHg (80-100); ARTERIAL BLOOD GAS pH 7.402 (7.350-7.450)
[2021-03-15 14:39] LABS: ALLENS TEST POSITIVE
[2021-03-15 15:36] LABS: HEMATOCRIT 37.6 % (35.4-49); HEMOGLOBIN 12.1 GM/dL (11.7-16.9); MCH 31.9 pg (25.7-33.7); MCHC 32.1 g/dl (32.0-35.9); MEAN CELL VOLUME 99.4 fl (80-96); MEAN PLT VOLUME 8.8 fl (7.5-11.1); PLATELET COUNT 322 10^3/uL (134-434); RBC 3.78 M/mm3 (4.00-5.60); RDW 13.6 % (11.9-15.9); WHITE BLOOD COUNT 13.1 K/mm3 (4.0-10.0)
[2021-03-15 19:13] LABS: EPI CELLS 9 /uL (0-25.1); HYALINE CASTS 2 /uL (0-3.1); URINE APPEARANCE CLEAR; URINE BACTERIA 1936 /uL (0-1359); URINE BILIRUBIN NEGATIVE (NEGATIVE); URINE COLOR YELLOW; URINE GLUCOSE (UA) NEGATIVE (NEGATIVE); URINE KETONE TRACE (NEGATIVE); URINE LEUK ESTERASE NEGATIVE (NEGATIVE); URINE NITRITE NEGATIVE (NEGATIVE); URINE PROTEIN 1+ (NEGATIVE); URINE UROBILINOGEN 0.2 mg/dL (0.2-1.0); URINE WBC 9 /uL (0-25.8)
[2021-03-15] MEDS: ATORVASTATIN CA 40 MG TABLET (FP) PO SCH (21:44)
[2021-03-16] MEDS: hydrALAZINE HCL 25 MG TABLET (FP) PO SCH (05:45)
[2021-03-16 07:17] LABS: BASO % 0.5 % (0-2.0); EOS % 2.5 % (0-4.5); HEMATOCRIT 38.4 % (35.4-49); HEMOGLOBIN 12.1 GM/dL (11.7-16.9); LYMPH % 14.1 % (8-40); MCH 31.4 pg (25.7-33.7); MCHC 31.4 g/dl (32.0-35.9); MEAN CELL VOLUME 99.9 fl (80-96); MEAN PLT VOLUME 9.2 fl (7.5-11.1); MONO % 6.1 % (3.8-10.2); NEUT % 76.8 % (42.8-82.8); PLATELET COUNT 308 10^3/uL (134-434); RBC 3.85 M/mm3 (4.00-5.60); RDW 13.5 % (11.9-15.9); WHITE BLOOD COUNT 11.1 K/mm3 (4.0-10.0)
[2021-03-16 07:45] LABS: BLOOD UREA NITROGEN 46.2 mg/dL (7-18); CALCIUM 9.2 mg/dL (8.5-10.1)
[2021-03-16 07:46] LABS: ALBUMIN 3.1 g/dl (3.4-5.0)
[2021-03-16 07:49] LABS: CREATININE 1.4 mg/dL (0.55-1.3)
[2021-03-16 07:52] LABS: TOT PROT 6.6 g/dl (6.4-8.2)
[2021-03-16] MEDS: ISOSORBIDE DINITRATE 10 MG TABLET PO SCH ×3 (08:30→18:00)
[2021-03-16] MEDS ORDERED: cefTRIAXone SODIUM 1 GM VIAL ONE (09:51)
[2021-03-16] MEDS ORDERED: DEXTROSE 5%-WATER - 50 ML IVPB ONE (09:51)
[2021-03-16] MEDS: TAMSULOSIN HCL 0.4 MG CAP PO SCH (10:30)
[2021-03-16] MEDS: CEFTRIAXONE 1 GM in DEXTROSE 5%-WATER - 50 ML IVPB SCH (10:30)
[2021-03-16] MEDS: levETIRAcetam 500 MG/5 ML INJECTION VIAL IVPB SCH ×2 (10:30→21:40)
[2021-03-16] MEDS: NIFEdipine E.R 60 MG TABLET PO SCH (10:30)
[2021-03-16] MEDS: HEPARIN NA (PORCINE) 5,000 UNITS/ML 1ML VIAL SQ SCH ×2 (11:15→21:40)
[2021-03-16] MEDS ORDERED: SODIUM CHLORIDE 1,000 ML IV SCH (13:15)
[2021-03-16] MEDS ORDERED: ATORVASTATIN CA 80 MG TABLET (FP) PO ONE (14:00)
[2021-03-16] MEDS: hydrALAZINE HCL 50 MG TABLET (FP) PO SCH ×2 (14:44→21:40)
[2021-03-16] MEDS: ASPIRIN 81 MG CHEWABLE TABLETS PO SCH (14:45)
[2021-03-16 19:14] LABS: BASO % 0.3 % (0-2.0); EOS % 1.1 % (0-4.5); HEMATOCRIT 34.6 % (35.4-49); HEMOGLOBIN 11.6 GM/dL (11.7-16.9); LYMPH % 13.2 % (8-40); MCH 33.2 pg (25.7-33.7); MCHC 33.6 g/dl (32.0-35.9); MEAN PLT VOLUME 8.6 fl (7.5-11.1); MONO % 7.4 % (3.8-10.2); PLATELET COUNT 296 10^3/uL (134-434); RDW 13.8 % (11.9-15.9); WHITE BLOOD COUNT 8.6 K/mm3 (4.0-10.0)
[2021-03-16 19:23] LABS: INR 1.35 (0.83-1.09); PROTHROMBIN TIME (PATIENT) 15.6 SEC (9.7-13.0)
[2021-03-16 19:25] LABS: ACTIVATED PTT 25.2 SECONDS (25.2-36.5)
[2021-03-16 19:36] LABS: CALCIUM 9.4 mg/dL (8.5-10.1)
[2021-03-16 19:37] LABS: BLOOD UREA NITROGEN 45.6 mg/dL (7-18)
[2021-03-16 19:40] LABS: CREATININE 1.5 mg/dL (0.55-1.3)
[2021-03-16 19:41] LABS: BILIRUBIN,TOTAL 0.9 mg/dL (0.2-1); CHOLESTEROL 118 mg/dL (50-200); TOT PROT 6.5 g/dl (6.4-8.2); TRIGLYCERIDES 84 mg/dL (0-150)
[2021-03-16 19:42] LABS: LDL CHOLESTEROL (ONLY SJRH) 60 mg/dL (5-100)
[2021-03-16 19:44] LABS: HDL CHOLESTEROL 43 mg/dL (40-60)
[2021-03-16 20:13] LABS: EPI CELLS 8 /uL (0-25.1); HYALINE CASTS 2 /uL (0-3.1); URINE APPEARANCE CLOUDY; URINE BACTERIA 6006 /uL (0-1359); URINE BILIRUBIN NEGATIVE (NEGATIVE); URINE COLOR YELLOW; URINE GLUCOSE (UA) NEGATIVE (NEGATIVE); URINE KETONE NEGATIVE (NEGATIVE); URINE LEUK ESTERASE NEGATIVE (NEGATIVE); URINE NITRITE POSITIVE (NEGATIVE); URINE PROTEIN 1+ (NEGATIVE); URINE RBC 9 /uL (0-23.9); URINE UROBILINOGEN 0.2 mg/dL (0.2-1.0); URINE WBC 3 /uL (0-25.8)
[2021-03-17] MEDS: hydrALAZINE HCL 50 MG TABLET (FP) PO SCH ×3 (05:47→21:22)
[2021-03-17 07:00] LABS: BASO % 0.4 % (0-2.0); EOS % 1.2 % (0-4.5); HEMATOCRIT 36.5 % (35.4-49); HEMOGLOBIN 12.1 GM/dL (11.7-16.9); MCH 32.8 pg (25.7-33.7); MEAN CELL VOLUME 99.3 fl (80-96); MEAN PLT VOLUME 8.6 fl (7.5-11.1); MONO % 8.9 % (3.8-10.2); NEUT % 74.5 % (42.8-82.8); PLATELET COUNT 286 10^3/uL (134-434); RBC 3.68 M/mm3 (4.00-5.60); RDW 13.7 % (11.9-15.9); WHITE BLOOD COUNT 8.1 K/mm3 (4.0-10.0)
[2021-03-17 07:20] LABS: CALCIUM 9.4 mg/dL (8.5-10.1)
[2021-03-17 07:21] LABS: ALBUMIN 3.2 g/dl (3.4-5.0); BLOOD UREA NITROGEN 50.1 mg/dL (7-18); MAGNESIUM 2.3 mg/dL (1.8-2.4)
[2021-03-17 07:24] LABS: CREATININE 1.4 mg/dL (0.55-1.3); PHOSPHOROUS 3.2 mg/dL (2.5-4.9)
[2021-03-17 07:26] LABS: TOT PROT 6.8 g/dl (6.4-8.2)
[2021-03-17] MEDS ORDERED: SODIUM CHLORIDE 0.45% 1,000 ML IV SCH (08:00)
[2021-03-17] MEDS ORDERED: cefTRIAXone SODIUM 1 GM VIAL ONE (09:58)
[2021-03-17] MEDS ORDERED: DEXTROSE 5%-WATER - 50 ML IVPB ONE (09:59)
[2021-03-17] MEDS: ASPIRIN 81 MG CHEWABLE TABLETS PO SCH (10:57)
[2021-03-17] MEDS: TAMSULOSIN HCL 0.4 MG CAP PO SCH (10:57)
[2021-03-17] MEDS: levETIRAcetam 500 MG TABLET (FP) PO SCH ×2 (10:57→21:22)
[2021-03-17] MEDS: CEFTRIAXONE 1 GM in DEXTROSE 5%-WATER - 50 ML IVPB SCH (10:58)
[2021-03-17] MEDS: NIFEdipine E.R 60 MG TABLET PO SCH (10:58)
[2021-03-17] MEDS: HEPARIN NA (PORCINE) 5,000 UNITS/ML 1ML VIAL SQ SCH ×2 (10:58→21:22)
[2021-03-17] MEDS: ISOSORBIDE DINITRATE 10 MG TABLET PO SCH ×3 (11:02→17:48)
[2021-03-17 13:39] LABS: CALCIUM 9.5 mg/dL (8.5-10.1)
[2021-03-17 13:40] LABS: BLOOD UREA NITROGEN 44.6 mg/dL (7-18)
[2021-03-17 13:43] LABS: CREATININE 1.2 mg/dL (0.55-1.3)
[2021-03-17] MEDS: DEXTROSE 5%-WATER - 1,000 ML IV SCH (16:01)
[2021-03-17] MEDS: ATORVASTATIN CA 80 MG TABLET (FP) PO SCH (21:22)
[2021-03-18] MEDS: hydrALAZINE HCL 50 MG TABLET (FP) PO SCH ×3 (07:08→21:04)
[2021-03-18] MEDS ORDERED: DEXTROSE 5%-WATER - 50 ML IVPB ONE (11:26)
[2021-03-18] MEDS ORDERED: cefTRIAXone SODIUM 1 GM VIAL ONE (11:26)
[2021-03-18] MEDS: NIFEdipine E.R 60 MG TABLET PO SCH (11:34)
[2021-03-18] MEDS: levETIRAcetam 500 MG TABLET (FP) PO SCH ×2 (11:34→21:04)
[2021-03-18] MEDS: ASPIRIN 81 MG CHEWABLE TABLETS PO SCH (11:34)
[2021-03-18] MEDS: TAMSULOSIN HCL 0.4 MG CAP PO SCH (11:34)
[2021-03-18] MEDS: CEFTRIAXONE 1 GM in DEXTROSE 5%-WATER - 50 ML IVPB SCH (11:34)
[2021-03-18] MEDS: HEPARIN NA (PORCINE) 5,000 UNITS/ML 1ML VIAL SQ SCH ×2 (11:34→21:04)
[2021-03-18] MEDS: ISOSORBIDE DINITRATE 10 MG TABLET PO SCH ×3 (11:37→19:05)
[2021-03-18 11:50] LABS: BASO % 0.6 % (0-2.0); EOS % 2.1 % (0-4.5); HEMATOCRIT 34.6 % (35.4-49); HEMOGLOBIN 11.5 GM/dL (11.7-16.9); LYMPH % 12.1 % (8-40); MCH 33.1 pg (25.7-33.7); MCHC 33.4 g/dl (32.0-35.9); MEAN CELL VOLUME 99.3 fl (80-96); MEAN PLT VOLUME 8.6 fl (7.5-11.1); MONO % 7.7 % (3.8-10.2); NEUT % 77.5 % (42.8-82.8); PLATELET COUNT 314 10^3/uL (134-434); RBC 3.48 M/mm3 (4.00-5.60); RDW 13.5 % (11.9-15.9); WHITE BLOOD COUNT 7.4 K/mm3 (4.0-10.0)
[2021-03-18 12:10] LABS: BLOOD UREA NITROGEN 36.7 mg/dL (7-18); CALCIUM 9.4 mg/dL (8.5-10.1)
[2021-03-18 12:13] LABS: CREATININE 1.2 mg/dL (0.55-1.3)
[2021-03-18 12:15] LABS: BILIRUBIN,TOTAL 0.6 mg/dL (0.2-1); TOT PROT 6.9 g/dl (6.4-8.2)
[2021-03-18] MEDS ORDERED: DOCUSATE SODIUM 100 MG CAPSULE (FP) PO ONE (13:17)
[2021-03-18] MEDS: DEXTROSE 5%-WATER - 1,000 ML IV SCH ×2 (13:34→19:05)
[2021-03-18] MEDS: ATORVASTATIN CA 80 MG TABLET (FP) PO SCH (21:04)
[2021-03-19] MEDS: hydrALAZINE HCL 50 MG TABLET (FP) PO SCH ×3 (05:57→21:02)
[2021-03-19] MEDS: HEPARIN NA (PORCINE) 5,000 UNITS/ML 1ML VIAL SQ SCH ×3 (05:57→21:02)
[2021-03-19 07:18] LABS: BASO % 0.5 % (0-2.0); EOS % 2.7 % (0-4.5); HEMATOCRIT 34.2 % (35.4-49); MCH 32.2 pg (25.7-33.7); MCHC 32.3 g/dl (32.0-35.9); MEAN CELL VOLUME 99.9 fl (80-96); MEAN PLT VOLUME 8.7 fl (7.5-11.1); NEUT % 73.8 % (42.8-82.8); PLATELET COUNT 306 10^3/uL (134-434); RBC 3.42 M/mm3 (4.00-5.60); RDW 12.9 % (11.9-15.9); WHITE BLOOD COUNT 6.5 K/mm3 (4.0-10.0)
[2021-03-19 07:34] LABS: ALBUMIN 3.2 g/dl (3.4-5.0); BLOOD UREA NITROGEN 31.2 mg/dL (7-18); CALCIUM 9.7 mg/dL (8.5-10.1); MAGNESIUM 1.9 mg/dL (1.8-2.4)
[2021-03-19 07:37] LABS: CREATININE 1.1 mg/dL (0.55-1.3); PHOSPHOROUS 2.9 mg/dL (2.5-4.9)
[2021-03-19 07:39] LABS: BILIRUBIN,TOTAL 0.6 mg/dL (0.2-1)
[2021-03-19] MEDS ORDERED: cefTRIAXone SODIUM 1 GM VIAL ONE ×2 (08:06→17:06)
[2021-03-19] MEDS ORDERED: DEXTROSE 5%-WATER - 50 ML IVPB ONE ×2 (08:07→17:06)
[2021-03-19] MEDS: TAMSULOSIN HCL 0.4 MG CAP PO SCH (11:13)
[2021-03-19] MEDS: ASPIRIN 81 MG CHEWABLE TABLETS PO SCH (11:14)
[2021-03-19] MEDS: levETIRAcetam 500 MG TABLET (FP) PO SCH ×2 (11:14→21:02)
[2021-03-19] MEDS: DEXTROSE 5%-WATER - 1,000 ML IV SCH ×2 (11:14→14:48)
[2021-03-19] MEDS: CEFTRIAXONE 1 GM in DEXTROSE 5%-WATER - 50 ML IVPB SCH (11:14)
[2021-03-19] MEDS: AMINO ACIDS/PROTEIN HYDROLYS 30 ML LIQUID.PKT PO SCH (11:14)
[2021-03-19] MEDS: ISOSORBIDE DINITRATE 10 MG TABLET PO SCH ×3 (11:14→18:59)
[2021-03-19] MEDS: NIFEdipine E.R 60 MG TABLET PO SCH (11:14)
[2021-03-19] MEDS: ATORVASTATIN CA 80 MG TABLET (FP) PO SCH (21:02)
[2021-03-19 22:31] LABS: EPI CELLS 7 /uL (0-25.1); HYALINE CASTS 1 /uL (0-3.1); PH,URINE 5.5 (5.0-8.0); URINE APPEARANCE CLEAR; URINE BACTERIA 17 /uL (0-1359); URINE BILIRUBIN NEGATIVE (NEGATIVE); URINE COLOR YELLOW; URINE GLUCOSE (UA) NEGATIVE (NEGATIVE); URINE KETONE NEGATIVE (NEGATIVE); URINE LEUK ESTERASE NEGATIVE (NEGATIVE); URINE NITRITE NEGATIVE (NEGATIVE); URINE PROTEIN 1+ (NEGATIVE); URINE RBC 6 /uL (0-23.9); URINE UROBILINOGEN 0.2 mg/dL (0.2-1.0); URINE WBC 5 /uL (0-25.8)
[2021-03-20] MEDS: HEPARIN NA (PORCINE) 5,000 UNITS/ML 1ML VIAL SQ SCH ×3 (05:58→21:36)
[2021-03-20] MEDS: hydrALAZINE HCL 50 MG TABLET (FP) PO SCH ×3 (05:58→21:36)
[2021-03-20 07:46] LABS: BASO % 1.1 % (0-2.0); HEMATOCRIT 34.5 % (35.4-49); HEMOGLOBIN 11.2 GM/dL (11.7-16.9); LYMPH % 20.9 % (8-40); MCH 32.2 pg (25.7-33.7); MCHC 32.4 g/dl (32.0-35.9); MEAN CELL VOLUME 99.5 fl (80-96); MONO % 6.8 % (3.8-10.2); NEUT % 66.2 % (42.8-82.8); PLATELET COUNT 326 10^3/uL (134-434); RBC 3.47 M/mm3 (4.00-5.60)
[2021-03-20 07:47] LABS: CALCIUM 9.4 mg/dL (8.5-10.1)
[2021-03-20 07:48] LABS: ALBUMIN 3.2 g/dl (3.4-5.0); BLOOD UREA NITROGEN 32.6 mg/dL (7-18)
[2021-03-20 07:51] LABS: CREATININE 1.1 mg/dL (0.55-1.3)
[2021-03-20 07:52] LABS: BILIRUBIN,TOTAL 0.5 mg/dL (0.2-1); TOT PROT 6.9 g/dl (6.4-8.2)
[2021-03-20] MEDS: ISOSORBIDE DINITRATE 10 MG TABLET PO SCH ×3 (08:00→17:15)
[2021-03-20] MEDS: NIFEdipine E.R 60 MG TABLET PO SCH (12:00)
[2021-03-20] MEDS: levETIRAcetam 500 MG TABLET (FP) PO SCH ×2 (12:01→21:36)
[2021-03-20] MEDS: TAMSULOSIN HCL 0.4 MG CAP PO SCH (12:01)
[2021-03-20] MEDS: ASPIRIN 81 MG CHEWABLE TABLETS PO SCH (12:01)
[2021-03-20] MEDS: DEXTROSE 5%-WATER - 1,000 ML IV SCH (12:02)
[2021-03-20] MEDS: AMINO ACIDS/PROTEIN HYDROLYS 30 ML LIQUID.PKT PO SCH (12:02)
[2021-03-20] MEDS: ATORVASTATIN CA 80 MG TABLET (FP) PO SCH (21:36)
[2021-03-21] MEDS: HEPARIN NA (PORCINE) 5,000 UNITS/ML 1ML VIAL SQ SCH (06:30)
[2021-03-21] MEDS: hydrALAZINE HCL 50 MG TABLET (FP) PO SCH (06:30)
[2021-03-21 07:26] LABS: BASO % 0.7 % (0-2.0); EOS % 6.2 % (0-4.5); HEMATOCRIT 32.2 % (35.4-49); HEMOGLOBIN 10.5 GM/dL (11.7-16.9); LYMPH % 29.5 % (8-40); MCH 32.1 pg (25.7-33.7); MCHC 32.5 g/dl (32.0-35.9); MEAN CELL VOLUME 98.7 fl (80-96); MEAN PLT VOLUME 8.9 fl (7.5-11.1); MONO % 6.6 % (3.8-10.2); PLATELET COUNT 331 10^3/uL (134-434); RBC 3.26 M/mm3 (4.00-5.60); RDW 12.8 % (11.9-15.9); WHITE BLOOD COUNT 6.4 K/mm3 (4.0-10.0)
[2021-03-21 07:56] LABS: BLOOD UREA NITROGEN 29.6 mg/dL (7-18); CALCIUM 9.3 mg/dL (8.5-10.1)
[2021-03-21 07:59] LABS: CREATININE 1.1 mg/dL (0.55-1.3)
[2021-03-21 08:00] LABS: BILIRUBIN,TOTAL 0.5 mg/dL (0.2-1); TOT PROT 6.5 g/dl (6.4-8.2)
[2021-03-21] MEDS: levETIRAcetam 500 MG TABLET (FP) PO SCH (09:30)
[2021-03-21] MEDS: NIFEdipine E.R 60 MG TABLET PO SCH (09:30)
[2021-03-21] MEDS: ASPIRIN 81 MG CHEWABLE TABLETS PO SCH (09:30)
[2021-03-21] MEDS: TAMSULOSIN HCL 0.4 MG CAP PO SCH (09:30)
[2021-03-21] MEDS: DEXTROSE 5%-WATER - 1,000 ML IV SCH (09:31)
[2021-03-21] MEDS: AMINO ACIDS/PROTEIN HYDROLYS 30 ML LIQUID.PKT PO SCH (09:31)
[2021-03-21] MEDS: ISOSORBIDE DINITRATE 10 MG TABLET PO SCH (09:42)
[2021-03-21] MEDS ORDERED: POTASSIUM CHLORIDE TABS 20 MEQ TABLET.ER (FP) PO ONE (10:56)
[2021-03-21 10:57] VITALS: BP 151/86; PULSE 82; TEMP 99
== END 2021-03-21 12:49 | DRG 101 ==
LOC: JER 13:42 → JERBED 15:52 → J4W 03-13 22:39
PROVIDERS: ADMIT Hospitalist; ATTEND Internal Medicine
DX: R56.9 Unspecified convulsions (principal); N17.9 Acute kidney failure, unspecified; E87.0 Hyperosmolality and hypernatremia; N39.0 Urinary tract infection, site not specified; I69.354 Hemiplegia and hemiparesis following cerebral infarction affecting left non-dominant side; I13.10 Hypertensive heart and chronic kidney disease without heart failure, with stage 1 through stage 4 chronic kidney disease, or unspecified chronic kidney disease; N18.9 Chronic kidney disease, unspecified; N40.0 Benign prostatic hyperplasia without lower urinary tract symptoms; E11.9 Type 2 diabetes mellitus without complications; E87.6 Hypokalemia; I25.10 Atherosclerotic heart disease of native coronary artery without angina pectoris; I16.0 Hypertensive urgency; R00.1 Bradycardia, unspecified
CPT/HCPCS: 36415; 36600; 70450-TC; 71045-TC-FY; 72125-TC; 76775-TC; 80048; 80053; 80061; 80184; 81003; 82550; 82553; 82570; 82803; 82962; 83036; 83605; 83735; 84100; 84146; 84156; 84300; 84439; 84443; 84484; 85025; 85027; 85610; 85730; 87040; 87086; 87186; 87804; 93005; 93010; 93880-TC; 95816; 97116-GP; 97162-GP; 99285-25; C9803; J0131; J1644; U0003; U0005